=== PATIENT | female | born 1990 | race Caucasian/White ===

== ENCOUNTER 2016-05-31 17:27 | Outpatient (CLI) | payer SELFPAY ==
[2016-05-31 18:11] LABS: APPEARANCE CLEAR (CLEAR); BILIRUBIN NEGATIVE (NEGATIVE); COLOR YELLOW (YELLOW); GLUCOSE NEGATIVE (NEGATIVE); KETONE NEGATIVE (NEGATIVE); LEUKOCYTE ESTERASE NEGATIVE (NEGATIVE); NITRITE NEGATIVE (NEGATIVE); PROTEIN NEGATIVE (NEGATIVE); UROBILINOGEN NORMAL (NORMAL)
[2016-05-31] MEDS ORDERED: PRENATAL COMPLE1 TAB PO (18:51)
[2016-05-31] MEDS ORDERED: AMBIEN5 MG PO (18:51)
[2016-05-31] MEDS ORDERED: BIOTIN5 MG PO (18:51)
[2016-05-31 19:26] LABS: BASOPHILS 0.1 % (0.0-2.0); EOSINOPHILS 1.1 % (0-7); HEMATOCRIT 39.3 % (36.0-48.0); HEMOGLOBIN 13.5 g/dL (12-16); IMMATURE GRANULOCYTES 0.4 % (0-5); LYMPHOCYTES 27.6 % (15-50); MCH 33.1 pg (26.0-34.0); MCHC 34.4 g/dL (31.0-37.0); MCV 96.3 fL (80.0-100.0); MEAN PLATELET VOLUME 9.6 fL (7.4-10.4); MONOCYTES 8.2 % (2-11); NEUTROPHILS 62.6 % (40-80); PLATELET COUNT 271 10x3/uL (130-400); RBC 4.08 10x6/uL (4.00-5.40); WBC 10.3 10x3/uL (4.8-10.8)
[2016-06-29 10:44] VITALS: BMI 28.3
== END 2016-06-01 12:10 | disposition home or self-care (01) ==
LOC: D.LD 17:27 → D.LDO 17:27 → D.LD 23:33 → D.LDO 06-01 12:10
PROVIDERS: Obstetrics & Gynecology
DX: O36.8120 Decreased fetal movements, second trimester, not applicable or unspecified (principal); Z3A.22 22 weeks gestation of pregnancy; R10.32 Left lower quadrant pain

== ENCOUNTER → 2016-06-09 15:28 | Outpatient (CLI) | payer SELFPAY ==
[~2016-06-09 15:28] MED LIST: ACETAMINOPHEN500 M1 PO; AMBIEN5 MG PO; BIOTIN5 MG PO; HYDROCODON-ACE1 EAC7 PO; HYDROCODONE-APA1 TAB PO; IBUPROFEN600 MG PO; PRENATAL COMPLE1 TAB PO
[2016-06-09 17:06] LABS: APPEARANCE CLOUDY (CLEAR); BACTERIA MODERATE /hpf (NONE SEEN); BILIRUBIN NEGATIVE (NEGATIVE); COLOR YELLOW (YELLOW); GLUCOSE NEGATIVE (NEGATIVE); KETONE NEGATIVE (NEGATIVE); LEUKOCYTE ESTERASE 2+ (NEGATIVE); NITRITE NEGATIVE (NEGATIVE); PROTEIN NEGATIVE (NEGATIVE); RED CELLS - URINE 0-5 /hpf (0-5); UROBILINOGEN NORMAL (NORMAL)
[2016-06-18 17:09] LABS: AEROBE ID Final report (())
[2016-06-29 10:44] VITALS: BMI 28.3
== END | disposition home or self-care (01) ==
LOC: D.LDO 15:28
PROVIDERS: Obstetrics & Gynecology
DX: O26.899 Other specified pregnancy related conditions, unspecified trimester (principal); R10.9 Unspecified abdominal pain; R11.0 Nausea

== ENCOUNTER → 2016-06-20 10:15 | Outpatient (CLI) | payer MEDICAID ==
[2016-06-20 11:28] LABS: APPEARANCE CLEAR (CLEAR); BILIRUBIN NEGATIVE (NEGATIVE); COLOR STRAW (YELLOW); GLUCOSE NEGATIVE (NEGATIVE); KETONE NEGATIVE (NEGATIVE); LEUKOCYTE ESTERASE NEGATIVE (NEGATIVE); NITRITE NEGATIVE (NEGATIVE); PROTEIN NEGATIVE (NEGATIVE); SPECIFIC GRAVITY 1.005 (1.005-1.020); UROBILINOGEN NORMAL (NORMAL)
[2016-06-29 10:44] VITALS: BMI 28.3
== END | disposition home or self-care (01) ==
LOC: D.LDO 10:15
PROVIDERS: Specialist
DX: Z34.03 Encounter for supervision of normal first pregnancy, third trimester (principal); M54.9 Dorsalgia, unspecified; R10.9 Unspecified abdominal pain

== ENCOUNTER 2016-06-29 04:38 | Inpatient (IN) | payer MEDICAID ==
[~2016-06-29] VITALS: Ht 162.6 cm; Wt 74.8 kg
[~2016-06-29 04:38] MED LIST changes: -ACETAMINOPHEN500 M1 PO; -HYDROCODON-ACE1 EAC7 PO; -HYDROCODONE-APA1 TAB PO; -IBUPROFEN600 MG PO
[2016-06-29] MEDS ORDERED: HYDROCODON-ACE1 EAC7 PO (05:06)
[2016-06-29] MEDS ORDERED: ACETAMINOPHEN500 M1 PO (05:06)
[2016-06-29] MEDS ORDERED: AMBIEN5 MG PO (05:08)
[2016-06-29] MEDS ORDERED: BIOTIN5 MG PO (05:09)
[2016-06-29 05:12] VITALS: BP 124/86; BMI 28.4
[2016-06-29 06:24] LABS: HEMATOCRIT 37.2 % (36.0-48.0); HEMOGLOBIN 13.2 g/dL (12-16); MCH 33.9 pg (26.0-34.0); MCHC 35.5 g/dL (31.0-37.0); MCV 95.6 fL (80.0-100.0); MEAN PLATELET VOLUME 10.1 fL (7.4-10.4); RBC 3.89 10x6/uL (4.00-5.40); RDW 12.1 % (11.5-14.5); WBC 10.1 10x3/uL (4.8-10.8)
[2016-06-29 06:45] LABS: APPEARANCE HAZY (CLEAR); COLOR YELLOW (YELLOW)
[2016-06-29 06:48] LABS: BACTERIA FEW /hpf (NONE SEEN); BILIRUBIN NEGATIVE (NEGATIVE); GLUCOSE NEGATIVE (NEGATIVE); KETONE SMALL mg/dL (NEGATIVE); LEUKOCYTE ESTERASE TRACE (NEGATIVE); NITRITE NEGATIVE (NEGATIVE); PROTEIN TRACE mg/dL (NEGATIVE); RED CELLS - URINE OCC /hpf (0-5); UROBILINOGEN NORMAL (NORMAL); WHITE CELLS - URINE OCC /hpf (0-5)
[2016-06-29 10:44] VITALS: Ht 162.6 cm; Wt 74.8 kg
[2016-06-30] VITALS (9 sets, daily range): BP systolic 120–145; BP diastolic 67–88
[2016-06-30 07:25] LABS: RAPID PLASMA REAGIN Non Reactive (Non Reactive)
--- NOTE | 2016-06-30 11:21 | NUR ---
PT AT THIS TIME.
[2016-06-30 11:37] LABS: BASOPHILS 0.2 % (0.0-2.0); EOSINOPHILS 0.5 % (0-7); HEMATOCRIT 34.3 % (36.0-48.0); HEMOGLOBIN 11.8 g/dL (12-16); IMMATURE GRANULOCYTES 0.6 % (0-5); MCH 32.8 pg (26.0-34.0); MCHC 34.4 g/dL (31.0-37.0); MCV 95.3 fL (80.0-100.0); MEAN PLATELET VOLUME 9.7 fL (7.4-10.4); MONOCYTES 8.2 % (2-11); NEUTROPHILS 71.5 % (40-80); PLATELET COUNT 231 10x3/uL (130-400); WBC 12.2 10x3/uL (4.8-10.8)
--- NOTE | 2016-06-30 11:51 | NUR ---
RECEIVED PT FROM RR VIA BED TO ROOM 1257. BED LOCKED AND PLACED IN LOW POSITION. PT AAO X 4. VSS. HRRR WITHOUT AUDIBLE MURMUR. BBS CLEAR. BS X 4. ABDOMEN SOFT/NON-DISTENDED. FUNDUS FIRM AT U/U. RUBRA LOCHIA MOD AMT. NO CLOTS NOTED. PERIPAD CHANGED. ABDOMINAL DRESSING DRY WITHOUT DRAINAGE NOTED. ICE PACK TO INCISION. HUGHES TO GRAVITY DRAINING CLEAR, YELLOW URINE. SCDS ON BLE. PUMP ON. PIV SITE CLEAR TO RIGHT HAND. NS WITH PITOCIN 20 UNITS INFUSING AT 125 ML/HR. SITE CLEAR. PT CANDIDO WELL. PT PROVIDED SPLINT PILLOW. INSTRUCTED ON TURN, COUGH AND DEEP BREATHING. DEMONSTRATES UNDERSTANDING. SR UP X 2. CALL LIGHT IN REACH.
--- NOTE | 2016-06-30 12:04 | NUR ---
MORPHINE WATERWORKS SUPERVISOR STARTED ORDERED. PT INSTRUCTED ON MED. VERBALIZES UNDERSTANDING. DEMONSTRATES UNDERSTANDING OF WATERWORKS SUPERVISOR BUTTON.
--- NOTE | 2016-06-30 13:17 | NUR ---
PT C/O INCISIONAL PAIN OF "10" ON 0-10 PAIN SCALE. TORADOL 30 MG GIVEN SIVP OVER 2 MINUTES. PT INSTRUCTED ON MED. VERBALIZES UNDERSTANDING.
--- NOTE | 2016-06-30 13:56 | NUR ---
PT SITTING UP IN BED. ATTEMPTING TO BREASTFEED INFANT. STATES PAIN MUCH LESS SINCE TORADOL. STATES "6" ON 0-10 PAIN SCALE.
--- NOTE | 2016-06-30 14:15 | NUR ---
PT WAS TAKEN TO THE NURSERY BY WHEELCHAIR TO WATCH HER BATHE THEIR BABY. HER IV WAS SALINE LOCKED AND HER SCD'S REMOVED.
--- NOTE | 2016-06-30 14:40 | NUR ---
PT RETURNS TO ROOM VIA WHEELCHAIR PER SPOUSE. PT BACK TO BED. TOLERATES ACTIVITY WELL. VSS. FRESH ICE PACK TO INCISION. PERIPAD CHANGED WITH MOD RUBRA LOCHIA NOTED. NO CLOTS.
--- NOTE | 2016-06-30 15:34 | NUR ---
PT SITTING UP IN BED. VISITS WITH SO. DENIES NEEDS OR C/O.
--- NOTE | 2016-06-30 15:39 | NUR ---
DR YAN NOTIFIED OF HIDE GRADER LOCKOUT ORDER. NEW ORDER RECEIVED.
--- NOTE | 2016-06-30 15:42 | NUR ---
NEWSPAPER DELIVERY COUNSELOR LOCKOUT CHANGED TO 30 MG EVERY 4 HOURS.
--- NOTE | 2016-06-30 17:01 | NUR ---
PT SITTING UP IN BED. VISITS WITH FAMILY. HOLDS INFANT WITH MUCH WARMTH SHOWN. VSS. I/O COMPLETED. PERIPAD CHANGED WITH SMALL TO MOD AMT OF RUBRA LOCHIA NOTED. DRESSING DRY WITHOUT DRAINAGE. PT DENIES NEEDS.
--- NOTE | 2016-06-30 18:59 | NUR ---
REPORT GIVEN TO ON-COMING SHIFT.
--- NOTE | 2016-06-30 19:16 | NUR ---
REC'D PT IN BED. S/O AT BEDSIDE AND SUPPORTIVE. PT REQUESTED PAIN MEDICATION FOR C/O PAIN 11/14 TO ABDOMEN. TORADOL 30MG ADMINISTERED AT THIS TIME. SEE E-MAR FOR COMPLETE DOCUMENTATION. RESP EVEN AND UNLABORED. LUNGS CLEAR BILATERALLY. BOWEL SOUNDS PRESENT X4. ABDOMEN SOFT. FUNDUS FIRM U/2. HUGHES CATH DRAINING CLEAR YELLOW URINE. SCDS IN PLACE, PUMP ON AND FUNCTIONING. PT TURNED, COUGH AND DEEP BREATHED. LITA/HUGHES CARE DONE. PADS CHANGED. FRESH ICE CAP TO ABDOMEN AND CUP OF ICE WATER PROVIDED PER PT REQUEST. SIDE RAILS UP X2. CALL LIGHT/PHONE IN REACH. NO FURTHER NEEDS AT THIS TIME. BLAYNE PETER
--- NOTE | 2016-06-30 21:43 | NUR ---
ROOM CHECK, PT SITTING UP IN BED. FAMILY VISITING. DENIES NEEDS AT THIS TIME. BLAYNE PETER
--- NOTE | 2016-06-30 23:43 | NUR ---
ROOM CHECK, PT RESTING WITH EYES CLOSED. RESP EVEN AND UNLABORED. INFANT IN NSY UNDER NURSE OBSERVATION. BLAYNE PETER
[2016-07-01 00:40] VITALS: BP 128/72
--- NOTE | 2016-07-01 00:40 | NUR ---
PT CALLS FOR PAIN MEDICATION. INFORMED HER TORADOL IS DUE AT 0115. PT PUSHED HER AUTO SERVICE MECHANIC BUTTON. VS TAKEN AND WNL. FRESH ICE CAP TO ABDOMEN. CUP OF ICE FOR HER DRINK IN THE ROOM. LITA PAD CHANGED. BLAYNE PETER
--- NOTE | 2016-07-01 00:55 | NUR ---
PT C/O PAIN 01/15. MEDICATED WITH TORADOL 30MG SIVP. SEE E-MAR. BLAYNE PETER
--- NOTE | 2016-07-01 01:51 | NUR ---
ROUNDS MADE, PT RESTING WITH EYES CLOSED. EASILY AWAKENED WITH VERBAL STIMULI. PT C/O PAIN. PUSHED HER ENGINEER SYSTEMS BUTTON. INFORMED SHE CAN HAVE TORADOL AT 0230. VERBALIZED UNDERSTANDING. BLAYNE PETER
--- NOTE | 2016-07-01 03:08 | NUR ---
RUBY ON RAILS DEVELOPER INFUSION COMPLETE. NEW SYRINGE UP TO PRESENT TUBING PER ORDERS. SEE EMAR. PT RATES PAIN 7/10 IN ABD DESCRIBED GAS PAINS AT THIS TIME. PT DENIES FURTHER NEEDS. WILL CONTINUE POC.
--- NOTE | 2016-07-01 03:17 | NUR ---
PITOCIN INFUSION COMPLETE. OLD BAG DOWN. NEW BAG UP TO PRESENT TUBING AND INFUSING @ 125ML PER HR VIA PUMP.
[2016-07-01 03:26] VITALS: BP 115/72
--- NOTE | 2016-07-01 03:38 | NUR ---
PT RINGS CL. THIS RN TO BEDSIDE. PT REQUESTING LIGHTS TURNED UP IN ORDER TO SEE WHILE . PT DENIES FURTHER NEEDS AT THIS TIME.
--- NOTE | 2016-07-01 06:00 | NUR ---
PT AWAKE AND ALERT. IV PUMP CLEARED, HUGHES BAG EMPTIED. FRESH ICE CAP TO ABODMEN. GOWN CHANGED, LITA CARE DONE AND PAD CHANGED. PT CALLED NSY TO CHECK ON . BLAYNE PETER
[2016-07-01 07:33] LABS: BASOPHILS 0.2 % (0.0-2.0); EOSINOPHILS 1.9 % (0-7); HEMOGLOBIN 10.8 g/dL (12-16); IMMATURE GRANULOCYTES 0.8 % (0-5); LYMPHOCYTES 20.6 % (15-50); MCH 32.9 pg (26.0-34.0); MCHC 34.8 g/dL (31.0-37.0); MCV 94.5 fL (80.0-100.0); MEAN PLATELET VOLUME 9.7 fL (7.4-10.4); MONOCYTES 9.7 % (2-11); NEUTROPHILS 66.8 % (40-80); PLATELET COUNT 217 10x3/uL (130-400); RBC 3.28 10x6/uL (4.00-5.40)
--- NOTE | 2016-07-01 08:00 | NUR ---
sitting up in bed eating breakfast. states will call when ready and will saline lock iv and remove adorno cath.
[2016-07-01 09:00] VITALS: BP 119/84
--- NOTE | 2016-07-01 09:00 | NUR ---
ASSESSMENT DONE. SITTING UP IN BED HOLDING INFANT. IV CONVERTED TO SALINE LOCK. HUGHES CATH REMOVED WITH 1025 CC CLEAR URINE IN BAG. RATES PAIN AT A 5 ON SCALE OF 0-10 WITH CRAMPING AND INCISIONAL PAIN. FUNDUS U2/SCANT LOCHIA NOTED ON PAD.
--- NOTE | 2016-07-01 09:04 | NUR ---
James Rangel 07/[birth year] S: Client states is going ok, sleeps. It's hard to wake her for feeding, has been hand expressing and providing colostrum with a spoon. States since she had a , it's hard for her to move around especially with all the wires she is connected to and to handle . States infant blood sugar keeps dropping, baby was given formula by spoon yesterday. O: Patient in bed eating breakfast, father holding on sofa. You may find at first that it's difficult to find a "comfortable" nursing position. Try experimenting as much as possible to get the most comfortable position, and don't hesitate to ask for help getting positioned from your partner, nurses, or counselor. Whichever position works best, make sure the baby's tummy is towards you. If baby is not latching well and transferring milk well, then it can affect milk supply and the speed that your milk comes in. Explain feeding cues, and benefits of skin to skin to promote to nurse. Provided and explained handouts on waking a sleeping baby, skin to skin, positions for , hand expression, and starting a feeding. takes time and patience, place skin to skin as much as possible, wake infant as needed for feeding; ask for help as needed with latching. Encourage to hand express and offer colostrum, then try placing to the breast. Take things one feeding at a time. Will follow up, asked if any questions or concerns, all declined at this time. A: Patient having a hard time waking infant to feed. P: Continue to support exclusively during hospital visit. Azra Puga, CLC
--- NOTE | 2016-07-01 09:39 | NUR ---
Pt awake and alert and oriented x 3. SL to right hand with site clear. Color WNL, infant to left breast at this time. Pt denies needs at this time.
--- NOTE | 2016-07-01 09:55 | NUR ---
meds given. pt instructed to call nurse before gets up.
--- NOTE | 2016-07-01 11:00 | NUR ---
ambulated to bathroom without problems- voided 500cc. tolerated well. returned to bed.
--- NOTE | 2016-07-01 12:30 | NUR ---
PATIENT UP TO SHOWER. LINENS CHANGED AT THIS TIME. PATIENT TOLERATED SHOWER WELL. NO SIGNS OF DISTRESS NOTED.
--- NOTE | 2016-07-01 13:04 | NUR ---
pain med given after shower. plans on ambulating in iqbal
--- NOTE | 2016-07-01 13:59 | NUR ---
up and about in room-no requests. family at bedside. sindi walsh rn and osman pitts rn has also cared for pt this afternoon. at this time report given to womens service nurse to assume care.
[2016-07-01 14:20] VITALS: BP 123/70
--- NOTE | 2016-07-01 15:30 | NUR ---
PATIENT RESTING IN ROOM QUIETLY. NO SIGNS OF DISTRESS NOTED. AT BEDSIDE.
--- NOTE | 2016-07-01 17:37 | NUR ---
PATIENT STATES PAIN 7 OUT OF 10. PRN PAIN MEDICATION GIVEN AT THIS TIME.
--- NOTE | 2016-07-01 18:45 | NUR ---
PATIENT STATES PAIN 7 OUT OF 10. PRN PAIM MEDICATION ADMINISTERED.
--- NOTE | 2016-07-01 20:00 | NUR ---
PT RECEIVED SITTING UP IN BED FEEDING AT THIS TIME WITH FAMILY AT BEDSIDE. INFORMED PT I WOULD COME BACK TO DO VITALS AND ASSESSMENT. DENIES NEEDS. BED LOW. PHONE AND CALL LIGHT IN REACH. SRX2.
[2016-07-01 20:45] VITALS: BP 125/66
--- NOTE | 2016-07-01 20:45 | NUR ---
PT SITTING UP IN BED AWAKE AND ALERT. FOB AT BEDSIDE. VSS. S/L NOTED TO RIGHT HAND. DRESSING CDI. HEART RRR. LUNG SOUNDS CLEAR BILATERALLY. BOWEL SOUNDS ACTIVE X4 QUADRENTS. ABDOMEN SOFT WITH TENDERNESS. LOW TRANSVERSE INCISION NOTED TO ABDOMEN. NO REDNESS, SWELLING, OR PURULENT DRAINAGE NOTED. FFM. NO LOCHIA NOTED TO LITA PAD. PT STATES LOCHIA HAS BEEN LIGHT. RATES PAIN 4/10. DENIES NEEDS AT THIS TIME. BED LOW. PHONE AND CALL LIGHT IN REACH. SRX2.
--- NOTE | 2016-07-01 21:21 | NUR ---
PT FAMILY MEMBER AT DESK. REQUESTS ICE AT THIS TIME. DENIES OTHER NEEDS.
--- NOTE | 2016-07-01 21:50 | NUR ---
PT REQUESTS MEDICATION FOR PAIN 5/10 AT THIS TIME. ADMINISTERED NORCO PO PER ORDERS. PT ALSO REQUESTS MORE PADS. DENIES OTHER NEEDS.
--- NOTE | 2016-07-01 22:05 | NUR ---
PT SITTING UP IN BED PUMPING AT THIS TIME. REQUESTS MORE PADS AND AN ICE PACK. DENIES OTHER NEEDS. BED LOW. PHONE AND CALL LIGHT IN REACH SRX2.
[2016-07-02 00:38] VITALS: BP 121/67
--- NOTE | 2016-07-02 00:38 | NUR ---
PT SITTING UP IN BED FEEDING AT THIS TIME. VSS. PT REQUESTS MEDICATION FOR PAIN 09/14. ADMINISTERED MOTRIN PO PER ORDERS. ALSO ADMINISTERED COLACE PER ORDERS. PT REQUESTS ICE AT THIS TIME. DENIES OTHER NEEDS. BED LOW. PHONE AND CALL LIGHT IN REACH. SRX2.
--- NOTE | 2016-07-02 02:12 | NUR ---
PT RESTING QUIETLY AT THIS TIME WITH EYES CLOSED. RESPIRATIONS EVEN, NON-LABORED. NO ACUTE DISTRESS NOTED AT THIS TIME. BED LOW. PHONE AND CALL LIGHT IN REACH. SRX2.
--- NOTE | 2016-07-02 03:35 | NUR ---
PT RINGS CL. RN TO BS. PT REQUESTS & RECEIVES NORCO 10 PER ORDERS. SEE EMAR, FOR PAIN RATED 7/10 @ INCISION AREA AND DESCRIBED BURNING AND CRAMPING. FOB @ BS. PT DENIES FURTHER NEEDS AT THIS TIME. WILL CONTINUE POC.
--- NOTE | 2016-07-02 04:39 | NUR ---
PT RESTING QUIETLY AT THIS TIME WITH EYES CLOSED. AROUSED EASILY. VSS. PT DENIES NEEDS AT THIS TIME. BED LOW. PHONE AND CALL LIGHT IN REACH. SRX2.
[2016-07-02 04:40] VITALS: BP 107/67
--- NOTE | 2016-07-02 06:17 | NUR ---
PT SITTING UP IN BED WITH ON CHEST. FOB AT BEDSIDE. REMOVED IV AT THIS TIME PER PT REQUEST. CATHETER TIP INTACT. PT DENIES OTHER NEEDS AT THIS TIME. BED LOW. PHONE AND CALL LIGHT IN REACH. SRX2.
--- NOTE | 2016-07-02 07:28 | NUR ---
PT CALLS ON LIGHT. C/O ABDOMINAL CRAMPING AND INCISIONAL BURNING OF "6" ON 0-10 PAIN SCALE. REQUESTS AND RECEIVES MOTRIN 600 MG PO ORDERED. PT INSTRUCTED ON MED. VERBALIZES UNDERSTANDING.
[2016-07-02 07:35] VITALS: BP 110/73
--- NOTE | 2016-07-02 07:40 | NUR ---
PT AWAKE, SITTING UP IN BED. LOW TRANSVERSE ABD INC C/D/I WITH DERMABOND. ABD SOFT. STATES SCANT LOCHIA. FUNDUS U/2, FIRM. NO NEEDS AT THIS TIME. LARGE GLASS ICE WATER PROVIDED. IN CRIB AT BEDSIDE.
--- NOTE | 2016-07-02 08:18 | NUR ---
PER WEB IZ PT HAS HAD TDAP.
--- NOTE | 2016-07-02 08:20 | NUR ---
CALLED TO ROOM. PT CONCERNED BECAUSE WHEN SHE STARTED NURSING FELT A GUSH OF BLOOD. ADVISED DUE TO UTERUS PETROS WITH NURSING. REASSURED.
--- NOTE | 2016-07-02 08:50 | NUR ---
SITTING UP IN BED NURSING .
--- NOTE | 2016-07-02 09:48 | NUR ---
PT AMBULATES IN HALLWAY. REQUESTS PAIN RX. SEE EMAR. RESTING IN BED.
--- NOTE | 2016-07-02 09:59 | NUR ---
DR. GALINDO HERE TO SEE . SPEAKS WITH PT.
[2016-07-02] MEDS ORDERED: IBUPROFEN600 MG PO (10:33)
[2016-07-02] MEDS ORDERED: HYDROCODONE-APA1 TAB PO (10:33)
--- NOTE | 2016-07-02 10:39 | NUR ---
SITTING UP IN BED CHANGING .
--- NOTE | 2016-07-02 12:16 | NUR ---
D/C INSTRUCTIONS EXPLAINED TO PT. VOICED UNDERSTANDING. COPIES OF ALL GIVEN, WELL WRITTEN RX'S FOR NORCO AND MOTRIN PER DR. YAN.
--- NOTE | 2016-07-02 13:02 | NUR ---
D/C'D HOME WITH , VIA WC, TO PRIVATE CAR.
--- NOTE | 2016-07-05 11:44 | OP ---
PATIENT NAME: LIZA YI MEDICAL RECORD: [id number] LOCATION:[id number] ADMISSION DATE:06/29/16 SURGEON: YASMANY CHOUDHURY MD DATE OF OPERATION: 06/30/2016 PREOPERATIVE DIAGNOSES: 1. Chronic hypertension at 38 weeks and 6 days. 2. Prolonged latent phase of labor. 3. Failed augmentation of labor. POSTOPERATIVE DIAGNOSES: 1. Chronic hypertension at 38 weeks and 6 days. 2. Prolonged latent phase of labor. 3. Failed augmentation of labor. PROCEDURE: Primary low transverse section. SURGEON: Yasmany Choudhury MD ANESTHESIA: Via epidural. INTRAVENOUS FLUIDS: Per anesthesia record. SPECIMENS: Placenta and cord for gases. FINDINGS: 1. Viable male , Apgars 9 at 1 and 9 at 5. 2. Placenta delivered manually intact, 3-vessel cord noted. 3. Grossly normal adnexa bilaterally. COMPLICATIONS: None apparent. DESCRIPTION OF PROCEDURE: The patient was taken to the operating room, epidural anesthesia was achieved without difficulty. The patient was then prepped and draped in normal sterile fashion in the dorsal supine position. Cole catheter had been placed and was draining freely and the patient had SCDs on, which were functioning normally. A Pfannenstiel skin incision was made, extended downward to the underlying subcutaneous fat to level of the fascia, which was then excised in the midline and then dissected bilaterally using the Dolan scissors. Superior and inferior aspects of the fascial incision were then grasped with Jae clamps times 2, tented upward, and sharply dissected from the underlying rectus muscle using the Dolan scissors and Bovie cautery. The rectus muscles were then bluntly in the midline and the pyramidalis muscle was dissected in its midline using the Bovie cautery. The peritoneum was entered superiorly using the Metzenbaum scissors and further dissection of the peritoneum occurred and direct visualization of the bladder. A bladder blade was then placed into the pelvis. A bladder flap was created by excising the anterior peritoneum off the lower uterine segment and the bladder was gently dissected downward. The bladder blade was then placed into the pelvis. A low transverse incision was made and the uterine incision was extended superiorly and inferiorly using the Pelosi method. The infant's head was found to be extended and a vacuum was placed on the occiput, correcting to head flexion. Application time approximately 15 seconds. Delivery of the head without traction on the neck was performed. Following delivery of the head, the vacuum was removed and the infant's body was delivered atraumatically. OPERATIVE REPORT [id number] LIZA YI was immediately bulb suction. Cord was clamped times 2, cut, and the infant was handed to awaiting nursery team. Cord was obtained for gases and the placenta was then manually removed. The uterus was exteriorized, cleared of all clots and debris. Some uterine atony was noted. The patient was given Methergine as her blood pressure had been completely normal during the labor process a good uterine tone was noted and the uterine incision was repaired with 0 Vicryl in a running locked fashion times 2. Good hemostasis was noted. The posterior cul-de-sac was then thoroughly irrigated and the uterus was replaced into the pelvis. The anterior cul-de-sac was then thoroughly irrigated and the uterine incision was again checked for hemostasis, which was found to be normal. The counts were correct times 2. Fascia was repaired with 0 loop PDS times 1 and the skin repaired in a running subcutaneous fashion using 3-0 Monocryl and Dermabond. TRANSINT:[id number] Voice Confirmation ID: [id number] DOCUMENT ID: [id number] YASMANY CHOUDHURY MD at 1142 CC: [id number] DICTATION DATE: 07/01/16701 COLOR MAKER FORMULATOR: 07/01/16 0751 ADM IN [facility] [address] [place] [address]
== END 2016-07-02 13:02 | disposition home or self-care (01) | DRG 766 ==
LOC: D.LD 04:38
PROVIDERS: ADMIT Obstetrics & Gynecology
PROC: 10D00Z1 Extraction of Products of Conception, Low, Open Approach (ICD-10-PCS; principal; 2016-06-30 09:30)
DX: O16.4 Unspecified maternal hypertension, complicating childbirth (principal); Z3A.38 38 weeks gestation of pregnancy; Z37.0 Single live birth; O63.9 Long labor, unspecified; O99.344 Other mental disorders complicating childbirth; F98.8 Other specified behavioral and emotional disorders with onset usually occurring in childhood and adolescence